=== PATIENT | female | born 1975 | race Caucasian/White ===

== ENCOUNTER 2023-07-25 08:31 | Outpatient (CLI) | payer BC, SELFPAY | END 2023-07-25 08:32 | disposition home or self-care (01) | LOC: NFLDREF 07-27 12:40 | PROVIDERS: PCP Physician Assistant Medical; Referring Provider Physician Assistant Medical; Visit Provider Physician Assistant Medical | DX: Z00.00 Encounter for general adult medical examination without abnormal findings (principal); M19.90 Unspecified osteoarthritis, unspecified site; Z13.29 Encounter for screening for other suspected endocrine disorder; Z13.6 Encounter for screening for cardiovascular disorders | CPT/HCPCS: 80053; 80061; 84443; 86140 ==

== ENCOUNTER 2024-07-04 08:10 | Outpatient (CLI) | payer BC, SELFPAY | END 2024-07-04 08:11 | disposition home or self-care (01) | LOC: NFLDREF 07-08 19:14 | PROVIDERS: PCP Physician Assistant Medical; Referring Provider Physician Assistant Medical; Visit Provider Physician Assistant Medical | DX: R74.01 Elevation of levels of liver transaminase levels (principal); M19.90 Unspecified osteoarthritis, unspecified site; Z11.59 Encounter for screening for other viral diseases; Z11.4 Encounter for screening for human immunodeficiency virus [HIV] | CPT/HCPCS: 80053; 80061; 84443; 86140; 86703; 86803 ==

== ENCOUNTER 2024-07-30 08:10 | Outpatient (CLI) | payer BC, SELFPAY ==
--- NOTE | 2024-07-30 08:45 | CRLHL7_ITS ---
For Patients: As a result of the Cures Act, medical imaging exams and procedure reports are released immediately into your electronic medical record. You may view this report before your referring provider. If you have questions, please contact your health care provider. DIGITAL DIAGNOSTIC BILATERAL MAMMOGRAM USING TOMOSYNTHESIS AND COMPUTER-AIDED DETECTION RIGHT BREAST ULTRASOUND CLINICAL HISTORY: RIGHT breast lump. COMPARISON: None. TECHNIQUE: Digital BILATERAL mammogram in four projections with computer-aided detection. Tomosynthesis was used in this interpretation. Real-time ultrasound imaging of RIGHT breast with imaging documentation. BREAST COMPOSITION: The breasts are heterogeneously dense, which may obscure small masses. FINDINGS: 3D CC/MLO BILATERAL mammogram images submitted. No suspicious masses or architectural distortion. No adenopathy. Benign calcifications are present. Targeted RIGHT breast ultrasound performed at 11 o`clock 5 cm from the nipple. In this location, there is a simple cyst measuring 5 x 5 x 5 millimeters. No suspicious findings. Additional ultrasound at 11 o`clock 9 cm from the nipple performed in the area of lump. Normal fibroglandular tissue noted. IMPRESSION: No suspicious findings. Normal fibroglandular tissue and a small 5 millimeter simple cyst. No evidence of malignancy. RECOMMENDATIONS: Annual BILATERAL screening mammography. Results and recommendations discussed with the patient. BI-RADS Category 2: Benign A lay language report of this examination will be provided to the patient. Dictated by Kevin Saez MD @ 07/30/2024 12:56:54 PM vanij/Dictated by: Kevin Saez MD @ 07/30/2024 12:56:00 PM (Electronically Signed)
--- NOTE | 2024-07-30 09:15 | CRLHL7_ITS ---
For Patients: As a result of the Cures Act, medical imaging exams and procedure reports are released immediately into your electronic medical record. You may view this report before your referring provider. If you have questions, please contact your health care provider. PLEASE SEE DIGITAL DIAGNOSTIC BILATERAL MAMMOGRAM PERFORMED SAME DAY CRL:[email or web address] [email or web address]/Dictated by: Kevin Saez MD @ 07/30/2024 12:57:00 PM (Electronically Signed)
== END 2024-07-30 08:11 | disposition home or self-care (01) ==
LOC: MAMMO 08:11
PROVIDERS: PCP Physician Assistant Medical; Visit Provider Physician Assistant Medical
DX: N63.10 Unspecified lump in the right breast, unspecified quadrant (principal); R92.333 Mammographic heterogeneous density, bilateral breasts
CPT/HCPCS: 76642; 77066; G0279

== ENCOUNTER 2025-07-29 08:08 | Outpatient (CLI) | payer OTHER, SELFPAY | END 2025-07-29 08:09 | disposition home or self-care (01) | PROVIDERS: PCP Physician Assistant Medical; Visit Provider Physician Assistant Medical | DX: Z00.00 Encounter for general adult medical examination without abnormal findings (principal) | CPT/HCPCS: 80053; 80061; 82306; 84443 ==

== ENCOUNTER 2025-08-12 12:19 | Outpatient (CLI) | payer OTHER, SELFPAY ==
[2025-08-12 12:31] LABS: Appearance Urine Clear (Clear)
== END 2025-08-12 12:20 | disposition home or self-care (01) ==
LOC: LKVREF 12:27
PROVIDERS: PCP Physician Assistant Medical; Visit Provider Physician Assistant
DX: T19.2XXS Foreign body in vulva and vagina, sequela (principal); W44.8XXA Other foreign body entering into or through a natural orifice, initial encounter
CPT/HCPCS: 81001; 81003; 87086